=== PATIENT | male | born 1980 | race African-American/Black ===

== ENCOUNTER 2019-04-04 14:53 | Inpatient (IN) | payer OTHER ==
[2019-04-04 18:37] VITALS: BMI 21.7
--- NOTE | 2019-04-04 20:31 | HP ---
CIWA Score - Admission Criteria OASAS Guidelines: Admission for Medically Managed Detox: Requires at least one of the followin. CIWA greater than 12 2. Seizures within the past 24 hours 3. Delirium tremens within the past 24 hours 4. Hallucinations within the past 24 hours 5. Acute intervention needed for co occurring medical disorder 6. Acute intervention needed for co occurring psychiatric disorder 7. Severe withdrawal that cannot be handled at a lower level of care (continued vomiting, continued diarrhea, abnormal vital signs) requiring intravenous medication and/or fluids 8. Admission ROS [facility] Chief Complaint: HERE FOR REHAB FOR CRACK/COCAINE/ CANNABIS Allergies/Adverse Reactions: Allergies Allergy/AdvReac Type Severity Reaction Status Date / Time No Known Allergies Allergy Verified 04/27/15 12:13 History of Present Illness: 38 Y.O. MALE WITH COCAINE AND CANNABIS DEPENDENCE HERE FOR REHAB SERVICES. CLIENT IS REFERRED FROM [facility]. REPORTS USING CANNABIS AND COCAINE DAILY. LAST USE 2 DAYS AGO. REPORTS LONGEST CLEAN TIME 10 YEARS. DENIES HX/O SZ, SI/HI/ AVH. DOMICILED, UNEMPLOYED-HRA, [place]. Exam Limitations: No Limitations - Ebola screening Have you traveled outside of the country in the last 21 days: No (N) Have you had contact with anyone from an Ebola affected area: No Do you have a fever: No - Review of Systems Constitutional: Chills, Loss of Appetite EENT: reports: No Symptoms Reported Respiratory: reports: No Symptoms reported Cardiac: reports: No Symptoms Reported GI: reports: No Symptoms Reported : reports: No Symptoms Reported Musculoskeletal: reports: No Symptoms Reported Integumentary: reports: Other (2ND DEGREE CARDONA .RESOLVING BLISTTERING TO DIGITS OF R AND LEFT HAND) Neuro: reports: No Symptoms reported Endocrine: reports: No Symptoms Reported Hematology: reports: No Symptoms Reported Psychiatric: reports: Orientated x3, Agitated (IRRITABLE) Other Systems: Reviewed and Negative Patient History - Patient Medical History Hx Anemia: No Hx Asthma: No Hx Chronic Obstructive Pulmonary Disease (COPD): No Hx Cancer: No Hx Cardiac Disorders: No Hx Congestive Heart Failure: No Hx Hypertension: No Hx Hypercholesterolemia: No Hx Pacemaker: No HX Cerebrovascular Accident: No Hx Seizures: No Hx Dementia: No Hx Diabetes: No Hx Gastrointestinal Disorders: No Hx Liver Disease: No Hx Genitourinary Disorders: No Hx Sexually Transmitted Disorders: No Hx Renal Disease (ESRD): No Hx Thyroid Disease: No Hx Human Immunodeficiency Virus (HIV): No Hx Hepatitis C: No Hx Depression: No Hx Suicide Attempt: No Hx Bipolar Disorder: No Hx Schizophrenia: Yes Other Medical History: DENIES - Patient Surgical History Past Surgical History: Yes Hx Neurologic Surgery: No Hx Cataract Extraction: No Hx Cardiac Surgery: No Hx Lung Surgery: No Hx Breast Surgery: No Hx Breast Biopsy: No Hx Abdominal Surgery: No Hx Appendectomy: Yes (IN 2003) Hx Cholecystectomy: No Hx Genitourinary Surgery: No Hx Section: No Hx Orthopedic Surgery: No Other Surgical History: appendecotomy (2003) Anesthesia Reaction: No - PPD History Previous Implant?: Yes Documented Results: Negative w/proof Implanted On Prior [facility] Admission?: Yes Date: 07/09/14 Results: 0 mm PPD to be Administered?: Yes - Smoking Cessation Smoking history: Current every day smoker Have you smoked in the past 12 months: Yes Aproximately how many cigarettes per day: 10 Cigars Per Day: 0 Hx Chewing Tobacco Use: No Initiated information on smoking cessation: Yes 'Breaking Loose' booklet given: 04/04/19 - Substance & Tx. History Hx Alcohol Use: No Hx Substance Use: Yes Substance Use Type: Cocaine, Marijuana Hx Substance Use Treatment: Yes ([facility]) - Substances abused Crack Substance route: Smoking Frequency: Daily Amount used: 10 bags-$100/day Age of first use: 16 Date of last use: 04/02/19 Marijuana/Hashish Substance route: Smoking Frequency: 1-2 times per week (2X) Amount used: 2 JOINTS Age of first use: 14 Date of last use: 03/05/19 Family Disease History - Family Disease History Family History: Denies Admission Physical Exam S - Vital Signs Vital Signs: Vital Signs - 24 hr 04/04/19 18:34 Temperature 97.1 F L Pulse Rate 89 Respiratory 18 Rate Blood Pressure 134/72 - Physical General Appearance: Yes: Anxious, Other (MALODUROUS) HEENTM: Yes: EOMI, Normocephalic, MARISOL, Pharynx Normal, Other (POOR ORAL HYGIENE ) Respiratory: Yes: Chest Non-Tender, Lungs Clear, Normal Breath Sounds, No Respiratory Distress, No Accessory Muscle Use Neck: Yes: No masses,lesions,Nodules, Supple, Trachea in good position Breast: Yes: Breast Exam Deferred Cardiology: Yes: Regular Rhythm, Regular Rate, S1, S2 Abdominal: Yes: Normal Bowel Sounds, Non Tender, Soft Genitourinary: Yes: Within Normal Limits Back: Yes: Normal Inspection Musculoskeletal: Yes: full range of Motion, Gait Steady Extremities: Yes: Other (2ND DEGREE CARDONA WITH SOME BLISTERING AND NECROTIC TISSUE NOTED TO FINGERS ON BOTH HANDS. CLIENT REPORTS FROM CHRONIC USE OF CRACK PIPE. TENDER TO TOUCH, SCAR TISSUE AND CALCIFICATION OF SOME AREAS NOTED. NO S/ SX OF ACUTE INFECTION PROCESS NOTED.) Neurological: Yes: Alert, Motor Strength 5/5 Integumentary: Yes: Warm, Other (2ND DEGREE CARDONA WITH SOME BLISTERING AND NECROTIC TISSUE NOTED TO FINGERS ON BOTH HANDS. CLIENT REPORTS FROM CHRONIC USE OF CRACK PIPE. TENDER TO TOUCH, SCAR TISSUE AND CALCIFICATION OF SOME AREAS NOTED. NO S/SX OF ACUTE INFECTION PROCESS NOTED.) Lymphatic: Yes: Within Normal Limits - Diagnostic (1) Cocaine abuse, uncomplicated Current Visit: Yes Status: Acute (2) Cannabis abuse, uncomplicated Current Visit: Yes Status: Acute (3) 2nd degree burn of finger with thumb Current Visit: Yes Status: Acute Qualifiers: Encounter type: initial encounter (4) Drug-induced mood disorder Current Visit: Yes Status: Suspected Comment: Observation (5) Nicotine dependence Current Visit: Yes Status: Chronic Qualifiers: Nicotine product type: cigarettes Substance use status: uncomplicated Qualified Code(s): F17.210 - Nicotine dependence, cigarettes, uncomplicated Cleared for Admission [facility] - Detox or Rehab Detox Regimen/Protocol: Not Applicable Claeared for Rehab Admission: Yes Breathalyzer - Breathalyzer Breathalyzer: 0 Urine Drug Screen - Test Device Lot number: [id number] Expiration date: 12/27/20 - Control Is test valid?: Yes - Results Drug screen NEGATIVE: No Urine drug screen results: THC-Marijuana, LORETA-Cocaine Inpatient Rehab Admission - Rehab Decision to Admit Inpatient rehab admission?: Yes - Initial Determination Are CD services needed?: Yes Free of communicable disease: Yes Not in need of hospitalization: Yes - Rehab Admission Criteria Previous failed treatment: Yes Poor recovery environment: Yes Comorbidities: Yes Lacks judgement: No Patient is meeting Inpatient Rehab admission criteria:: Yes
[2019-04-04] MEDS ORDERED: P-EPHED 60MG/TRIPROLIDI 2.5MG TABLET PO PRN (20:35)
[2019-04-04] MEDS ORDERED: ACETAMINOPHEN 325 MG TABLET (FP) PO PRN (20:35)
[2019-04-04] MEDS ORDERED: NICOTINE POLACRILEX 2 MG GUM BUC PRN (20:35)
[2019-04-04] MEDS ORDERED: guaiFENesin 200 MG/10 ML 10 ML UNIT-DOSE CUPS PO PRN (20:35)
[2019-04-04] MEDS ORDERED: LOPERAMIDE HCL 2 MG CAPSULE PO PRN (20:35)
[2019-04-04] MEDS ORDERED: MAGNESIUM CITRATE 300 ML BOTTLE PO PRN (20:35)
[2019-04-04] MEDS ORDERED: MAGNESIUM HYDROX 2400MG/30ML ORAL SUSPENSION 30 ML CUP PO PRN (20:35)
[2019-04-04] MEDS ORDERED: MAG HYDROX/AL HYDROX/SIMETH 30 ML UNIT-DOSE CUP PO PRN (20:35)
[2019-04-04] MEDS ORDERED: hydrOXYzine PAMOATE 50 MG CAPSULE (FP) PO PRN (20:35)
[2019-04-04] MEDS ORDERED: IBUPROFEN 400 MG TABLET (FP) PO PRN (20:35)
[2019-04-04] MEDS ORDERED: MENTHOL/PHENOL 1 EACH UD MM PRN (20:35)
[2019-04-04] MEDS: CEPHALEXIN MONOHYDRATE 500 MG CAPSULE (UD) PO SCH (23:36)
[2019-04-04] MEDS: THIAMINE HCL 100 MG TABLET (FP) PO SCH (23:39)
[2019-04-04] MEDS: SILVER SULFADIAZINE 1% TOP CREAM 50 GM JAR TP SCH (23:39)
[2019-04-05 09:59] LABS: HEMATOCRIT 44.8 % (35.4-49); HEMOGLOBIN 14.6 GM/dL (11.7-16.9); MCHC 32.6 g/dl (32.0-35.9); MEAN PLT VOLUME 9.5 fl (7.5-11.1); PLATELET COUNT 222 K/MM3 (134-434); RBC 5.21 M/mm3 (4.00-5.60); RDW 14.8 % (11.9-15.9); WHITE BLOOD COUNT 4.4 K/mm3 (4.0-10.0)
[2019-04-05 10:29] LABS: ALBUMIN 3.5 g/dl (3.4-5.0); BILIRUBIN,TOTAL 1.1 mg/dL (0.2-1); CALCIUM 9.5 mg/dL (8.5-10.1); CREATININE 1.2 mg/dL (0.55-1.3); TOT PROT 7.5 g/dl (6.4-8.2)
[2019-04-05 10:36] LABS: POTASSIUM 2.8 mmol/L (3.5-5.1)
[2019-04-05] MEDS: CEPHALEXIN MONOHYDRATE 500 MG CAPSULE (UD) PO SCH ×2 (10:53→22:18)
[2019-04-05] MEDS: PRENATAL VITAMINS W/ FOLIC ACID TABLET (FP) PO SCH (10:53)
[2019-04-05] MEDS: NICOTINE 14 MG/24 HOURS TOPICAL PATCH TD SCH (10:54)
[2019-04-05] MEDS ORDERED: POTASSIUM CHLORIDE TABS 20 MEQ TABLET.ER (FP) PO ONE (11:00)
[2019-04-05] MEDS: SILVER SULFADIAZINE 1% TOP CREAM 50 GM JAR TP SCH (11:57)
--- NOTE | 2019-04-05 13:48 | CONSULT ---
[facility] Psychiatric Consult - Data Date of interview: 04/05/19 Admission source: [facility] Identifying data: Approached for psychiatric interview.Patient declines.
[2019-04-05] MEDS: POTASSIUM CHLORIDE TABS 20 MEQ TABLET.ER (FP) PO SCH (22:18)
[2019-04-05] MEDS: THIAMINE HCL 100 MG TABLET (FP) PO SCH (22:18)
[2019-04-06 09:15] LABS: RPR REACTIVE 1:1 (NONREACTIVE)
[2019-04-06 09:16] LABS: TREPONEMA ANTIBODY PREVIOUSLY REACTIVE (NONREACTIVE)
[2019-04-06] MEDS: CEPHALEXIN MONOHYDRATE 500 MG CAPSULE (UD) PO SCH ×2 (10:05→21:17)
[2019-04-06] MEDS: PRENATAL VITAMINS W/ FOLIC ACID TABLET (FP) PO SCH (10:05)
[2019-04-06] MEDS: POTASSIUM CHLORIDE TABS 20 MEQ TABLET.ER (FP) PO SCH ×2 (10:05→21:17)
[2019-04-06] MEDS: NICOTINE 14 MG/24 HOURS TOPICAL PATCH TD SCH (10:06)
[2019-04-06] MEDS: SILVER SULFADIAZINE 1% TOP CREAM 50 GM JAR TP SCH (10:06)
--- NOTE | 2019-04-06 10:29 | PN ---
S Progress Note Note: Laboratory Last Values WBC 4.4 K/mm3 (4.0-10.0) 04/05/19 08:10 RBC 5.21 M/mm3 (4.00-5.60) 04/05/19 08:10 Hgb 14.6 GM/dL (11.7-16.9) 04/05/19 08:10 Hct 44.8 % (35.4-49) 04/05/19 08:10 MCV 86.0 fl (80-96) 04/05/19 08:10 MCH 28.0 pg (25.7-33.7) 04/05/19 08:10 MCHC 32.6 g/dl (32.0-35.9) 04/05/19 08:10 RDW 14.8 % (11.9-15.9) 04/05/19 08:10 Plt Count 222 K/MM3 (134-434) 04/05/19 08:10 MPV 9.5 fl (7.5-11.1) 04/05/19 08:10 Sodium 138 mmol/L (136-145) 04/05/19 08:10 Potassium 2.8 mmol/L (3.5-5.1) L* 04/05/19 08:10 Chloride 96 mmol/L (98-107) L 04/05/19 08:10 Carbon Dioxide 35 mmol/L (21-32) H 04/05/19 08:10 Anion Gap 6 MMOL/L (8-16) L 04/05/19 08:10 BUN 15 mg/dL (7-18) 04/05/19 08:10 Creatinine 1.2 mg/dL (0.55-1.3) 04/05/19 08:10 Est GFR (CKD-EPI)AfAm 88.37 04/05/19 08:10 Est GFR (CKD-EPI)NonAf 76.25 04/05/19 08:10 Random Glucose 171 mg/dL (74-106) H 04/05/19 08:10 Calcium 9.5 mg/dL (8.5-10.1) 04/05/19 08:10 Total Bilirubin 1.1 mg/dL (0.2-1) H 04/05/19 08:10 AST 69 U/L (15-37) H 05/10/19 08:10 ALT 83 U/L (13-61) H 04/05/19 08:10 Alkaline Phosphatase 47 U/L (45-117) 04/05/19 08:10 Total Protein 7.5 g/dl (6.4-8.2) 04/05/19 08:10 Albumin 3.5 g/dl (3.4-5.0) 04/05/19 08:10 RPR Titer Reactive 1:1 (NONREACTIVE) H 04/05/19 08:10 T.pallidum Ab (MHA) Previously reactive (NONREACTIVE) 04/05/19 08:10 patient has history of syphilis treated in the past
[2019-04-06] MEDS: THIAMINE HCL 100 MG TABLET (FP) PO SCH (21:17)
--- NOTE | 2019-04-07 00:26 | PN ---
[facility] Progress Note Note: Patient PPD is 15 mm induration. Denies cough, SOB, night sweats. Plan: Chest x-ray. Consider referral for medication management, as needed.
[2019-04-07] MEDS: CEPHALEXIN MONOHYDRATE 500 MG CAPSULE (UD) PO SCH ×2 (10:12→21:43)
[2019-04-07] MEDS: POTASSIUM CHLORIDE TABS 20 MEQ TABLET.ER (FP) PO SCH ×2 (10:12→21:43)
[2019-04-07] MEDS: PRENATAL VITAMINS W/ FOLIC ACID TABLET (FP) PO SCH (10:12)
[2019-04-07] MEDS: NICOTINE 14 MG/24 HOURS TOPICAL PATCH TD SCH (10:12)
[2019-04-07] MEDS: SILVER SULFADIAZINE 1% TOP CREAM 50 GM JAR TP SCH (10:12)
--- NOTE | 2019-04-07 13:23 | PN ---
[facility] Progress Note Note: chest xray to be done on 04/08/19 at 1400 for positive ppd
[2019-04-07] MEDS: THIAMINE HCL 100 MG TABLET (FP) PO SCH (21:43)
[2019-04-08] MEDS: PRENATAL VITAMINS W/ FOLIC ACID TABLET (FP) PO SCH (10:17)
[2019-04-08] MEDS: POTASSIUM CHLORIDE TABS 20 MEQ TABLET.ER (FP) PO SCH ×2 (10:17→21:28)
[2019-04-08] MEDS: SILVER SULFADIAZINE 1% TOP CREAM 50 GM JAR TP SCH (10:17)
[2019-04-08] MEDS: CEPHALEXIN MONOHYDRATE 500 MG CAPSULE (UD) PO SCH ×2 (10:17→21:28)
[2019-04-08] MEDS: NICOTINE 14 MG/24 HOURS TOPICAL PATCH TD SCH (10:18)
--- NOTE | 2019-04-08 11:13 | PN ---
[facility] Progress Note Note: Laboratory Tests 04/05/19 04/05/19 04/05/19 08:10 08:10 08:10 WBC 4.4 RBC 5.21 Hgb 14.6 Hct 44.8 MCV 86.0 MCH 28.0 MCHC 32.6 RDW 14.8 Plt Count 222 MPV 9.5 Sodium 138 Potassium 2.8 L* Chloride 96 L Carbon Dioxide 35 H Anion Gap 6 L BUN 15 Creatinine 1.2 Est GFR (CKD-EPI)AfAm 88.37 Est GFR (CKD-EPI)NonAf 76.25 Random Glucose 171 H Calcium 9.5 Total Bilirubin 1.1 H AST 69 H ALT 83 H Alkaline Phosphatase 47 Total Protein 7.5 Albumin 3.5 RPR Titer Reactive 1:1 H T.pallidum Ab (MHA) Previously reactive TO REPEAT CMP ON 04/09/19
[2019-04-08] MEDS: THIAMINE HCL 100 MG TABLET (FP) PO SCH (21:28)
[2019-04-09] MEDS: PRENATAL VITAMINS W/ FOLIC ACID TABLET (FP) PO SCH (10:08)
[2019-04-09] MEDS: POTASSIUM CHLORIDE TABS 20 MEQ TABLET.ER (FP) PO SCH ×2 (10:08→21:19)
[2019-04-09] MEDS: CEPHALEXIN MONOHYDRATE 500 MG CAPSULE (UD) PO SCH ×2 (10:08→21:19)
[2019-04-09] MEDS: SILVER SULFADIAZINE 1% TOP CREAM 50 GM JAR TP SCH (10:09)
[2019-04-09] MEDS: NICOTINE 14 MG/24 HOURS TOPICAL PATCH TD SCH (10:09)
[2019-04-09 12:35] LABS: ALBUMIN 2.8 g/dl (3.4-5.0); BILIRUBIN,TOTAL 0.2 mg/dL (0.2-1); CALCIUM 8.6 mg/dL (8.5-10.1); CREATININE 1.1 mg/dL (0.55-1.3); POTASSIUM 3.9 mmol/L (3.5-5.1); TOT PROT 6.1 g/dl (6.4-8.2)
[2019-04-09] MEDS: THIAMINE HCL 100 MG TABLET (FP) PO SCH (21:19)
[2019-04-10] MEDS: PRENATAL VITAMINS W/ FOLIC ACID TABLET (FP) PO SCH (10:15)
[2019-04-10] MEDS: CEPHALEXIN MONOHYDRATE 500 MG CAPSULE (UD) PO SCH ×2 (10:15→21:25)
[2019-04-10] MEDS: POTASSIUM CHLORIDE TABS 20 MEQ TABLET.ER (FP) PO SCH ×2 (10:15→21:25)
[2019-04-10] MEDS: SILVER SULFADIAZINE 1% TOP CREAM 50 GM JAR TP SCH (10:16)
[2019-04-10] MEDS: NICOTINE 14 MG/24 HOURS TOPICAL PATCH TD SCH (10:16)
--- NOTE | 2019-04-10 13:26 | PN ---
[facility] Progress Note Note: PT WAS SEEN BY THE CROWNING INSPECTOR TODAY RE:ELEVATED BLOOD SUGAR. DENIES PREVIOUS HX OF DM BUT REPORTS FAMILY HX. Laboratory Tests 04/05/19 04/05/19 04/05/19 08:10 08:10 08:10 WBC 4.4 RBC 5.21 Hgb 14.6 Hct 44.8 MCV 86.0 MCH 28.0 MCHC 32.6 RDW 14.8 Plt Count 222 MPV 9.5 Sodium 138 Potassium 2.8 L* Chloride 96 L Carbon Dioxide 35 H Anion Gap 6 L BUN 15 Creatinine 1.2 Est GFR (CKD-EPI)AfAm 88.37 Est GFR (CKD-EPI)NonAf 76.25 Random Glucose 171 H Calcium 9.5 Total Bilirubin 1.1 H AST 69 H ALT 83 H Alkaline Phosphatase 47 Total Protein 7.5 Albumin 3.5 RPR Titer Reactive 1:1 H T.pallidum Ab (MHA) Previously reactive 04/09/19 07:30 WBC RBC Hgb Hct MCV MCH MCHC RDW Plt Count MPV Sodium 141 Potassium 3.9 Chloride 105 Carbon Dioxide 31 Anion Gap 4 L BUN 13 Creatinine 1.1 Est GFR (CKD-EPI)AfAm 98.18 Est GFR (CKD-EPI)NonAf 84.71 Random Glucose 152 H Calcium 8.6 Total Bilirubin 0.2 AST 74 H ALT 114 H Alkaline Phosphatase 42 L Total Protein 6.1 L Albumin 2.8 L RPR Titer T.pallidum Ab (MHA) REPEAT CMP/GLC NOT MUCH IMPROVED. PLAN:D/W PT AND CROWNING INSPECTOR BGM X 2 DAYS NCS DIET PT AGREED TO POC
[2019-04-10] MEDS: THIAMINE HCL 100 MG TABLET (FP) PO SCH (21:25)
[2019-04-11] MEDS: POTASSIUM CHLORIDE TABS 20 MEQ TABLET.ER (FP) PO SCH (10:40)
[2019-04-11] MEDS: PRENATAL VITAMINS W/ FOLIC ACID TABLET (FP) PO SCH (10:40)
[2019-04-11] MEDS: CEPHALEXIN MONOHYDRATE 500 MG CAPSULE (UD) PO SCH (10:40)
[2019-04-11] MEDS: SILVER SULFADIAZINE 1% TOP CREAM 50 GM JAR TP SCH (10:41)
[2019-04-11] MEDS: NICOTINE 14 MG/24 HOURS TOPICAL PATCH TD SCH (10:42)
[2019-04-11] MEDS: THIAMINE HCL 100 MG TABLET (FP) PO SCH (21:40)
[2019-04-12] MEDS: POTASSIUM CHLORIDE TABS 20 MEQ TABLET.ER (FP) PO SCH (10:14)
[2019-04-12] MEDS: NICOTINE 14 MG/24 HOURS TOPICAL PATCH TD SCH (10:14)
[2019-04-12] MEDS: PRENATAL VITAMINS W/ FOLIC ACID TABLET (FP) PO SCH (10:14)
[2019-04-12] MEDS: SILVER SULFADIAZINE 1% TOP CREAM 50 GM JAR TP SCH (10:14)
[2019-04-12] MEDS: THIAMINE HCL 100 MG TABLET (FP) PO SCH (21:28)
[2019-04-13] MEDS: PRENATAL VITAMINS W/ FOLIC ACID TABLET (FP) PO SCH (10:00)
[2019-04-13] MEDS: POTASSIUM CHLORIDE TABS 20 MEQ TABLET.ER (FP) PO SCH (10:00)
[2019-04-13] MEDS: SILVER SULFADIAZINE 1% TOP CREAM 50 GM JAR TP SCH (10:00)
[2019-04-13] MEDS: NICOTINE 14 MG/24 HOURS TOPICAL PATCH TD SCH (10:01)
[2019-04-13] MEDS: THIAMINE HCL 100 MG TABLET (FP) PO SCH (21:22)
[2019-04-14] MEDS: POTASSIUM CHLORIDE TABS 20 MEQ TABLET.ER (FP) PO SCH (10:07)
[2019-04-14] MEDS: PRENATAL VITAMINS W/ FOLIC ACID TABLET (FP) PO SCH (10:07)
[2019-04-14] MEDS: SILVER SULFADIAZINE 1% TOP CREAM 50 GM JAR TP SCH (10:08)
[2019-04-14] MEDS: NICOTINE 14 MG/24 HOURS TOPICAL PATCH TD SCH (10:08)
[2019-04-14] MEDS: MELATONIN 5 MG TABLETS PO PRN (21:16)
[2019-04-14] MEDS: THIAMINE HCL 100 MG TABLET (FP) PO SCH (21:16)
[2019-04-15] MEDS: SILVER SULFADIAZINE 1% TOP CREAM 50 GM JAR TP SCH (10:28)
[2019-04-15] MEDS: NICOTINE 14 MG/24 HOURS TOPICAL PATCH TD SCH (10:28)
[2019-04-15] MEDS: PRENATAL VITAMINS W/ FOLIC ACID TABLET (FP) PO SCH (10:28)
[2019-04-15] MEDS: THIAMINE HCL 100 MG TABLET (FP) PO SCH (21:21)
[2019-04-15] MEDS: MELATONIN 5 MG TABLETS PO PRN (21:23)
[2019-04-16] MEDS: SILVER SULFADIAZINE 1% TOP CREAM 50 GM JAR TP SCH (09:35)
[2019-04-16] MEDS: NICOTINE 14 MG/24 HOURS TOPICAL PATCH TD SCH (09:35)
[2019-04-16] MEDS: PRENATAL VITAMINS W/ FOLIC ACID TABLET (FP) PO SCH (09:35)
--- NOTE | 2019-04-16 09:57 | PN ---
[facility] Progress Note Note: PT REPORTS TO NURSING THAT HE WANTS TO GET BACK ON HIS PSYCHOTROPIC MEDICATIONS( SEE HOME MEDS). AN ATTEMPT WAS MADE TO SEE PT BY PSYCH CONSULT ON ADMISSION BUT PT DECLINED AT THE TIME. TODAY, PT STATES HE WILL LIKE TO BE SEEN TO START HIS MEDICATIONS. Vital Signs 04/16/19 04/16/19 03:30 06:50 Temperature 98.0 F Pulse Rate 58 L Respiratory 18 16 Rate Blood Pressure 117/71 Laboratory Tests 04/05/19 04/05/19 04/05/19 08:10 08:10 08:10 WBC 4.4 RBC 5.21 Hgb 14.6 Hct 44.8 MCV 86.0 MCH 28.0 MCHC 32.6 RDW 14.8 Plt Count 222 MPV 9.5 Sodium 138 Potassium 2.8 L* Chloride 96 L Carbon Dioxide 35 H Anion Gap 6 L BUN 15 Creatinine 1.2 Est GFR (CKD-EPI)AfAm 88.37 Est GFR (CKD-EPI)NonAf 76.25 POC Glucometer Random Glucose 171 H Calcium 9.5 Total Bilirubin 1.1 H AST 69 H ALT 83 H Alkaline Phosphatase 47 Total Protein 7.5 Albumin 3.5 RPR Titer Reactive 1:1 H T.pallidum Ab (MHA) Previously reactive 04/09/19 04/14/19 07:30 07:00 WBC RBC Hgb Hct MCV MCH MCHC RDW Plt Count MPV Sodium 141 Potassium 3.9 Chloride 105 Carbon Dioxide 31 Anion Gap 4 L BUN 13 Creatinine 1.1 Est GFR (CKD-EPI)AfAm 98.18 Est GFR (CKD-EPI)NonAf 84.71 POC Glucometer 82 Random Glucose 152 H Calcium 8.6 Total Bilirubin 0.2 AST 74 H ALT 114 H Alkaline Phosphatase 42 L Total Protein 6.1 L Albumin 2.8 L RPR Titer T.pallidum Ab (MHA) PLAN:TO BE SEEN BY PSYCH CONSULT.
[2019-04-16] MEDS: THIAMINE HCL 100 MG TABLET (FP) PO SCH (21:21)
[2019-04-17] MEDS: NICOTINE 14 MG/24 HOURS TOPICAL PATCH TD SCH (10:12)
[2019-04-17] MEDS: PRENATAL VITAMINS W/ FOLIC ACID TABLET (FP) PO SCH (10:12)
[2019-04-17] MEDS: SILVER SULFADIAZINE 1% TOP CREAM 50 GM JAR TP SCH (10:13)
--- NOTE | 2019-04-17 10:21 | PN ---
[facility] Progress Note Note: PT IS SCHEDULED TO BE DISCHARGED ON 04/18/19. REHAB WAS TOLERATED WELL. PT HAS MET WITH HIS COUNSELOR, NAPOLEON AZUL AND HAS BEEN REFERRED TO CD AFTERCARE AT [facility] ON [address]. PT REPORTS HE HAS A PSYCHIATRIST AT [facility] WHO MANAGES HIS MENTAL CARE AND WILL SEE HIM AFTER DISCHARGE ON 04/19/19. PT HAD ALL 10 DIGITS WITH CRACK PIPE CARDONA ON ADMISSION AND UNDERWENT WOUND TREATMENT WHILE HERE IN DRUG TREATMENT. PT IS ALERT O X 3. OOB AMBULATING WITH STEADY GAIT. CALM AND MAKES NEEDS KNOWN TO STAFF. DENIES S/H/I. Home Medications Medication Instructions Recorded Aripiprazole [Abilify] 10 mg PO HS 04/04/19 Olanzapine [Zyprexa -] 10 mg PO HS 04/04/19 Vital Signs 04/17/19 04/17/19 03:30 06:44 Temperature 97.8 F Pulse Rate 56 L Respiratory 18 16 Rate Blood Pressure 128/80 Laboratory Tests 04/05/19 04/05/19 04/05/19 08:10 08:10 08:10 WBC 4.4 RBC 5.21 Hgb 14.6 Hct 44.8 MCV 86.0 MCH 28.0 MCHC 32.6 RDW 14.8 Plt Count 222 MPV 9.5 Sodium 138 Potassium 2.8 L* Chloride 96 L Carbon Dioxide 35 H Anion Gap 6 L BUN 15 Creatinine 1.2 Est GFR (CKD-EPI)AfAm 88.37 Est GFR (CKD-EPI)NonAf 76.25 POC Glucometer Random Glucose 171 H Calcium 9.5 Total Bilirubin 1.1 H AST 69 H ALT 83 H Alkaline Phosphatase 47 Total Protein 7.5 Albumin 3.5 RPR Titer Reactive 1:1 H T.pallidum Ab (MHA) Previously reactive 04/09/19 04/14/19 07:30 07:00 WBC RBC Hgb Hct MCV MCH MCHC RDW Plt Count MPV Sodium 141 Potassium 3.9 Chloride 105 Carbon Dioxide 31 Anion Gap 4 L BUN 13 Creatinine 1.1 Est GFR (CKD-EPI)AfAm 98.18 Est GFR (CKD-EPI)NonAf 84.71 POC Glucometer 82 Random Glucose 152 H Calcium 8.6 Total Bilirubin 0.2 AST 74 H ALT 114 H Alkaline Phosphatase 42 L Total Protein 6.1 L Albumin 2.8 L RPR Titer T.pallidum Ab (MHA) BGM:82MG/DL SKIN:ALL 10 DIGITS WITH VARIOUS STAGES OF HEALING. SCABS AND DRY SKIN NOTED. NO OPEN SKIN. REDNESS AND SWELLING RESOLVED. A:S/P 2ND DEGREE CRACK PIPE BURN, BILATERAL FINGERS. NAD MEDICALLY STABLE FOR D/C ON 04/18/19. PLAN;FOLLOW UP FOR CD AFTERCARE AT [facility] RECOMMENDED ON 04/18/19 AT 11:00 A.M. FOLLOW UP WITH MEDICAL MANAGEMENT 1-2 WEEKS AFTER DISCHARGE.
--- NOTE | 2019-04-17 12:42 | CONSULT ---
[facility] Psychiatric Consult - Data Date of interview: 04/17/19 Admission source: [facility] Identifying data: Readmission to [facility] for this 38 y/o AA male self- referred for rehabilitation treatment (cannabis + cocaine). Direct admission to [address]. Patient is single, no children, domiciled (lives in a residential program at [facility] in [facility]), unemployed and supported on welfare. Substance Abuse History: Discussed in this session. Patient confirms an enduring history of crack + marihuana abuse. Details in this segment of [facility] report : Smoking history: Current every day smoker. Have you smoked in the past 12 months: Yes. Aproximately how many cigarettes per day: 10. Cigars Per Day: 0. Hx Chewing Tobacco Use: No. Initiated information on smoking cessation : Yes. 'Breaking Loose' booklet given: 04/04/19. - Substance & Tx. History. Hx Alcohol Use: No. Hx Substance Use: Yes. Substance Use Type: Cocaine, Marijuana. Hx Substance Use Treatment: Yes ([facility]). - Substances abused. Crack. Substance route: Smoking. Frequency: Daily. Amount used: 10 bags-$100/day. Age of first use: 16. Date of last use: 04/02/19. Marijuana/Hashish. Substance route: Smoking. Frequency: 1-2 times per week (2X ). Amount used: 2 JOINTS. Age of first use: 14. Date of last use: 03/05/19 Medical History: Patient endorses good general health. Noted history of past treatment for syphilis, appendectomy and positive PPD. No reported allergies. Psychiatric History: Patient endorses a history of multiple psychiatric hospitalizations ([facility], [facility], [facility]). Diagnosed with Schizophrenia. Mr Brooks sees a psychiatrist for medication management at the [facility] ( [facility]) in [facility]. Patient is maintained on a regimen of aripriprazole 10 mg/day. He indicates that he has NOT taken his medication for a period of three weeks prior to his admission to [facility] program. Patient denies history of suicide attempts. Physical/Sexual Abuse/Trauma History: Patient denies history of abuse in this interview. Additional Comment: Urine drug screen results: THC-Marijuana, LORETA-Cocaine. Noted. Mental Status Exam - Mental Status Exam Alert and Oriented to: Time, Place, Person Cognitive Function: Good Patient Appearance: Well Groomed Mood: Euthymic (stable mood) Affect: Appropriate, Normal Range Patient Behavior: Appropriate, Cooperative (friendly, good and coherent historian) Speech Pattern: Clear, Appropriate Voice Loudness: Normal Thought Process: Intact, Goal Oriented Thought Disorder: Not Present Hallucinations: Denies Suicidal Ideation: Denies Homicidal Ideation: Denies Insight/Judgement: Fair (patient has requested to get back on aripriprazole) Sleep: Well Appetite: Good Muscle strength/Tone: Normal Gait/Station: Normal Psychiatric Findings - Problem List ([place] 1, 2,3) (1) Schizophrenia Current Visit: Yes Status: Chronic (2) Cannabis abuse, uncomplicated Current Visit: Yes Status: Chronic (3) Cocaine dependence Current Visit: Yes Status: Chronic (4) Nicotine dependence Current Visit: Yes Status: Chronic Qualifiers: Nicotine product type: cigarettes Substance use status: uncomplicated Qualified Code(s): F17.210 - Nicotine dependence, cigarettes, uncomplicated - Initial Treatment Plan Initial Treatment Plan: Psychoeducation. Sleep hygiene. Motivational counseling for maintenance of sobriety + adherence to psychiatric aftercare (medications / attendance to Day program). Contact has been established this morning with [facility] case resource manager, Poncho Donahue, at [phone] : longitudinal history taken, medication + affiliation with [facility] confirmed. Mr Brooks has authorized MD to discuss his care with Mr Donahue (conversation was conducted in the presence of the patient). Abilify 5 mg po daily. Ordered.Side effects/benefits of the drug are discussed with patient. Informed consent given verbally to MD. Mental status is stable. Patient is at baseline. Uneventful rehabilitation course. Mr Brooks wishes to return to [facility] for his aftercare (fax : [phone]).
[2019-04-17] MEDS: ARIPiprazole 5 MG TABLET (FP) PO SCH (13:12)
[2019-04-17] MEDS: THIAMINE HCL 100 MG TABLET (FP) PO SCH (21:24)
[2019-04-18 06:57] VITALS: BP 128/82; PULSE 58; TEMP 97.9
[2019-04-18] MEDS: PRENATAL VITAMINS W/ FOLIC ACID TABLET (FP) PO SCH (10:01)
[2019-04-18] MEDS: NICOTINE 14 MG/24 HOURS TOPICAL PATCH TD SCH (10:02)
[2019-04-18] MEDS: SILVER SULFADIAZINE 1% TOP CREAM 50 GM JAR TP SCH (10:02)
[2019-04-18] MEDS: ARIPiprazole 5 MG TABLET (FP) PO SCH (10:02)
--- NOTE | 2019-04-18 10:20 | PN ---
S Progress Note Note: Psychiatry Attending's note : Script for abilify 5 mg po daily # 30 tablets. Sent to [facility].
== END 2019-04-18 10:45 | disposition home or self-care (01) | DRG 772 ==
LOC: YASAS 14:53 → Y5N 20:35
PROVIDERS: ADMIT Neuromusculoskeletal Medicine & OMM; ATTEND Neuromusculoskeletal Medicine & OMM
PROC: HZ42ZZZ Group Counseling for Substance Abuse Treatment, Cognitive-Behavioral (ICD-10-PCS; principal; 2019-04-04)
DX: F14.20 Cocaine dependence, uncomplicated (principal); F12.20 Cannabis dependence, uncomplicated; F17.210 Nicotine dependence, cigarettes, uncomplicated; F20.9 Schizophrenia, unspecified; F19.24 Other psychoactive substance dependence with psychoactive substance-induced mood disorder; E87.6 Hypokalemia; R73.9 Hyperglycemia, unspecified; R76.11 Nonspecific reaction to tuberculin skin test without active tuberculosis; T23.242A Burn of second degree of multiple left fingers (nail), including thumb, initial encounter; T23.241A Burn of second degree of multiple right fingers (nail), including thumb, initial encounter; X19.XXXA Contact with other heat and hot substances, initial encounter; Y93.89 Activity, other specified; Y92.89 Other specified places as the place of occurrence of the external cause; Y99.8 Other external cause status; Z86.19 Personal history of other infectious and parasitic diseases
CPT/HCPCS: 36415; 71045-TC-FY; 80053; 82962; 85027; 86593; 86780

== ENCOUNTER 2022-09-02 17:39 | Inpatient (IN) | payer OTHER ==
[2022-09-02 21:47] VITALS: BMI 25.2
[2022-09-03] MEDS ORDERED: IBUPROFEN 400 MG TABLET (FP) PO PRN (01:12)
[2022-09-03] MEDS ORDERED: guaiFENesin 200 MG/10 ML 10 ML UNIT-DOSE CUPS PO PRN (01:12)
[2022-09-03] MEDS ORDERED: NICOTINE POLACRILEX 2 MG GUM BC PRN (01:12)
[2022-09-03] MEDS ORDERED: MAGNESIUM CITRATE 300 ML BOTTLE PO PRN (01:12)
[2022-09-03] MEDS ORDERED: LOPERAMIDE HCL 2 MG CAPSULE PO PRN (01:12)
[2022-09-03] MEDS ORDERED: MAGNESIUM HYDROX 2400MG/30ML ORAL SUSPENSION 30 ML CUP PO PRN (01:12)
[2022-09-03] MEDS ORDERED: MAG HYDROX/AL HYDROX/SIMETH 30 ML UNIT-DOSE CUP PO PRN (01:12)
[2022-09-03] MEDS ORDERED: ACETAMINOPHEN 325 MG TABLET (FP) PO PRN (01:12)
[2022-09-03] MEDS ORDERED: P-EPHED 60MG/TRIPROLIDI 2.5MG TABLET PO PRN (01:12)
[2022-09-03 04:46] VITALS: BP 142/89; PULSE 66; RESP 20; TEMP 97.3
[2022-09-03] MEDS ORDERED: NICOTINE 14 MG/24 HOURS TOPICAL PATCH TD SCH (10:00)
[2022-09-03] MEDS ORDERED: PRENATAL VITAMINS W/ FOLIC ACID TABLET (FP) PO SCH (10:00)
[2022-09-03 12:07] LABS: HEMOGLOBIN 13.1 GM/dL (11.7-16.9); MCH 28.6 pg (25.7-33.7); MCHC 32.6 g/dl (32.0-35.9); MEAN CELL VOLUME 87.5 fl (80-96); MEAN PLT VOLUME 8.5 fl (7.5-11.1); PLATELET COUNT 286 10^3/uL (134-434); RBC 4.58 M/mm3 (4.00-5.60); RDW 15.9 % (11.9-15.9); WHITE BLOOD COUNT 4.2 K/mm3 (4.0-10.0)
[2022-09-03 12:15] LABS: CALCIUM 8.5 mg/dL (8.5-10.1)
[2022-09-03 12:17] LABS: ALBUMIN 2.7 g/dl (3.4-5.0); BLOOD UREA NITROGEN 16.7 mg/dL (7-18)
[2022-09-03 12:20] LABS: TOT PROT 6.4 g/dl (6.4-8.2)
[2022-09-03 12:22] LABS: BILIRUBIN,TOTAL 0.2 mg/dL (0.2-1)
[2022-09-03 12:42] LABS: SYPHILIS W/ RPR CONF NON-REACTIVE (NONREACTIVE)
[2022-09-03] MEDS ORDERED: THIAMINE HCL 100 MG TABLET (FP) PO SCH (22:00)
[2022-09-03] MEDS ORDERED: MELATONIN 5 MG TABLETS PO SCH (22:00)
== END 2022-09-04 08:03 | disposition left against medical advice (07) | DRG 770 ==
LOC: YASAS 17:39 → Y3E 09-03 04:26
PROVIDERS: ADMIT Surgery; ATTEND Surgery
PROC: HZ2ZZZZ Detoxification Services for Substance Abuse Treatment (ICD-10-PCS; principal; 2022-09-03)
DX: F14.20 Cocaine dependence, uncomplicated (principal); F20.9 Schizophrenia, unspecified; F19.24 Other psychoactive substance dependence with psychoactive substance-induced mood disorder; B18.2 Chronic viral hepatitis C; R76.11 Nonspecific reaction to tuberculin skin test without active tuberculosis; Z28.310 Unvaccinated for COVID-19; Z28.9 Immunization not carried out for unspecified reason; Z56.0 Unemployment, unspecified; Z59.00 Homelessness unspecified
CPT/HCPCS: 36415; 80053; 85027; 86780; 86803; 87522; C9803-CS; U0003; U0005

== ENCOUNTER 2023-04-28 23:13 | Inpatient (IN) | payer OTHER ==
[2023-04-28 23:58] VITALS: BMI 19.6
[2023-04-29] MEDS ORDERED: COLLOIDAL OATMEAL 1 BAR EACH TP PRN (01:04)
[2023-04-29] MEDS ORDERED: IBUPROFEN 400 MG TABLET (FP) PO PRN (01:04)
[2023-04-29] MEDS ORDERED: POLYETHYLENE GLYCOL (HEALTHYLAX) 3350 17 GM PACKET PO PRN (01:04)
[2023-04-29] MEDS ORDERED: BENZOCAINE/MENTHOL (CHLORASEPTIC ) LOZENGE MM PRN (01:04)
[2023-04-29] MEDS ORDERED: guaiFENesin 600 MG TABLET.ER (FP) PO PRN (01:04)
[2023-04-29] MEDS ORDERED: NALOXONE HCL (KLOXXADO) 8 MG SPRAY NS PRN (01:04)
[2023-04-29] MEDS ORDERED: NALOXONE HCL 0.4 MG/ML VIAL IM PRN (01:04)
[2023-04-29] MEDS ORDERED: LOPERAMIDE HCL 2 MG CAPSULE PO PRN (01:04)
[2023-04-29] MEDS ORDERED: MAGNESIUM HYDROX 2400MG/30ML ORAL SUSPENSION 30 ML CUP PO PRN (01:04)
[2023-04-29] MEDS ORDERED: ACETAMINOPHEN 325 MG TABLET (FP) PO PRN (01:04)
[2023-04-29] MEDS ORDERED: NICOTINE 10 MG CARTRIDGE (INHALER) IH PRN (01:04)
[2023-04-29] MEDS ORDERED: AMMONIUM LACTATE 12% LOTION 225 GM BOTTLE TP PRN (01:04)
[2023-04-29] MEDS ORDERED: BENZONATATE 200 MG CAPSULE PO PRN (01:04)
[2023-04-29] MEDS ORDERED: IBUPROFEN 600 MG TABLET (FP) PO PRN (01:04)
[2023-04-29] MEDS ORDERED: MAG HYDROX/AL HYDROX/SIMETH 30 ML UNIT-DOSE CUP PO PRN (01:04)
[2023-04-29 06:32] VITALS: RESP 18
[2023-04-29 07:00] VITALS: TEMP 98.6
[2023-04-29 09:05] VITALS: BP 132/67; PULSE 71
[2023-04-29] MEDS ORDERED: PRENATAL VITAMINS W/ FOLIC ACID TABLET (FP) PO SCH (10:00)
[2023-04-29] MEDS ORDERED: NICOTINE 14 MG/24 HOURS TOPICAL PATCH TD SCH (10:00)
[2023-04-29] MEDS ORDERED: THIAMINE HCL 100 MG TABLET (FP) PO SCH (22:00)
[2023-04-29] MEDS ORDERED: MELATONIN 5 MG TABLETS PO SCH (22:00)
== END 2023-04-29 20:45 | disposition left against medical advice (07) | DRG 770 ==
LOC: YASAS 23:13 → Y3W 04-29 02:05
PROVIDERS: ADMIT Allergy & Immunology; ATTEND Surgery
PROC: HZ42ZZZ Group Counseling for Substance Abuse Treatment, Cognitive-Behavioral (ICD-10-PCS; principal; 2023-04-29)
DX: F14.20 Cocaine dependence, uncomplicated (principal); F12.10 Cannabis abuse, uncomplicated; F17.210 Nicotine dependence, cigarettes, uncomplicated; F20.9 Schizophrenia, unspecified; B18.2 Chronic viral hepatitis C; Z28.311 Partially vaccinated for COVID-19
CPT/HCPCS: 87635

== ENCOUNTER 2023-05-30 01:11 | Inpatient (IN) | payer OTHER ==
[2023-05-30 01:49] VITALS: BMI 17.8
[2023-05-30] MEDS ORDERED: BENZOCAINE/MENTHOL (CHLORASEPTIC ) LOZENGE MM PRN (02:08)
[2023-05-30] MEDS ORDERED: COLLOIDAL OATMEAL 1 BAR EACH TP PRN (02:08)
[2023-05-30] MEDS ORDERED: hydrOXYzine PAMOATE 25 MG CAPSULE (FP) PO PRN (02:08)
[2023-05-30] MEDS ORDERED: IBUPROFEN 600 MG TABLET (FP) PO PRN (02:08)
[2023-05-30] MEDS ORDERED: POLYETHYLENE GLYCOL (HEALTHYLAX) 3350 17 GM PACKET PO PRN (02:08)
[2023-05-30] MEDS ORDERED: LOPERAMIDE HCL 2 MG CAPSULE PO PRN (02:08)
[2023-05-30] MEDS ORDERED: MAGNESIUM HYDROX 2400MG/30ML ORAL SUSPENSION 30 ML CUP PO PRN (02:08)
[2023-05-30] MEDS ORDERED: MAG HYDROX/AL HYDROX/SIMETH 30 ML UNIT-DOSE CUP PO PRN (02:08)
[2023-05-30] MEDS ORDERED: AMMONIUM LACTATE 12% LOTION 225 GM BOTTLE TP PRN (02:08)
[2023-05-30] MEDS ORDERED: guaiFENesin 600 MG TABLET.ER (FP) PO PRN (02:08)
[2023-05-30] MEDS ORDERED: ACETAMINOPHEN 325 MG TABLET (FP) PO PRN (02:08)
[2023-05-30] MEDS ORDERED: BENZONATATE 200 MG CAPSULE PO PRN (02:08)
[2023-05-30] MEDS ORDERED: IBUPROFEN 400 MG TABLET (FP) PO PRN (02:08)
[2023-05-30 03:41] VITALS: BP 125/71; PULSE 66; RESP 18; TEMP 97.7
[2023-05-30] MEDS: PRENATAL VITAMINS W/ FOLIC ACID TABLET (FP) PO SCH (11:10)
[2023-05-30] MEDS ORDERED: THIAMINE HCL 100 MG TABLET (FP) PO SCH (22:00)
[2023-05-30] MEDS ORDERED: MELATONIN 5 MG TABLETS PO SCH (22:00)
[2023-05-31] MEDS: PRENATAL VITAMINS W/ FOLIC ACID TABLET (FP) PO SCH (11:01)
== END 2023-05-31 11:50 | disposition left against medical advice (07) | DRG 770 ==
LOC: YASAS 01:11 → Y3W 02:32
PROVIDERS: ADMIT Allergy & Immunology; ATTEND Psychiatry & Neurology Pain Medicine
PROC: HZ42ZZZ Group Counseling for Substance Abuse Treatment, Cognitive-Behavioral (ICD-10-PCS; principal; 2023-05-30)
DX: F10.20 Alcohol dependence, uncomplicated (principal); F14.20 Cocaine dependence, uncomplicated; F20.9 Schizophrenia, unspecified; Z86.19 Personal history of other infectious and parasitic diseases; Z59.00 Homelessness unspecified
CPT/HCPCS: 87635; 87811

== ENCOUNTER 2023-07-22 14:53 | Inpatient (IN) | payer OTHER ==
[2023-07-22 16:25] VITALS: BMI 19.8
[2023-07-22] MEDS ORDERED: guaiFENesin 600 MG TABLET.ER (FP) PO PRN (17:58)
[2023-07-22] MEDS ORDERED: POLYETHYLENE GLYCOL (HEALTHYLAX) 3350 17 GM PACKET PO PRN (17:58)
[2023-07-22] MEDS ORDERED: MAGNESIUM HYDROX 2400MG/30ML ORAL SUSPENSION 30 ML CUP PO PRN (17:58)
[2023-07-22] MEDS ORDERED: ACETAMINOPHEN 325 MG TABLET (FP) PO PRN (17:58)
[2023-07-22] MEDS ORDERED: ONDANSETRON *ODT* 4 MG TABLET SL PRN (17:58)
[2023-07-22] MEDS ORDERED: IBUPROFEN 400 MG TABLET (FP) PO PRN (17:58)
[2023-07-22] MEDS ORDERED: METHOCARBAMOL 500 MG TABLET PO PRN (17:58)
[2023-07-22] MEDS ORDERED: IBUPROFEN 600 MG TABLET (FP) PO PRN (17:58)
[2023-07-22] MEDS ORDERED: BENZOCAINE/MENTHOL (CHLORASEPTIC ) LOZENGE MM PRN (17:58)
[2023-07-22] MEDS ORDERED: BENZONATATE 200 MG CAPSULE PO PRN (17:58)
[2023-07-22] MEDS ORDERED: BISMUTH SUBSALICYLATE 524 MG/30 ML PO PRN (17:58)
[2023-07-22] MEDS ORDERED: NALOXONE HCL 0.4 MG/ML VIAL IM PRN (17:58)
[2023-07-22] MEDS ORDERED: DICYCLOMINE HCL 10 MG CAPSULE PO PRN (17:58)
[2023-07-22] MEDS ORDERED: LOPERAMIDE HCL 2 MG CAPSULE PO PRN (17:58)
[2023-07-22] MEDS ORDERED: NALOXONE HCL (KLOXXADO) 8 MG SPRAY NS PRN (17:58)
[2023-07-22] MEDS ORDERED: hydrOXYzine PAMOATE 25 MG CAPSULE (FP) PO PRN (17:58)
[2023-07-22] MEDS ORDERED: MAG HYDROX/AL HYDROX/SIMETH 30 ML UNIT-DOSE CUP PO PRN (17:58)
[2023-07-22] MEDS ORDERED: diazePAM 5 MG TABLET PO PRN (17:58)
[2023-07-22] MEDS: MELATONIN 5 MG TABLETS PO SCH (22:58)
[2023-07-22] MEDS: THIAMINE HCL 100 MG TABLET (FP) PO SCH (22:58)
[2023-07-22] MEDS: diazePAM 5 MG TABLET PO SCH (23:00)
[2023-07-23] MEDS: diazePAM 5 MG TABLET PO SCH ×4 (06:00→22:49)
[2023-07-23 09:11] VITALS: RESP 18
[2023-07-23] MEDS: PRENATAL VITAMINS W/ FOLIC ACID TABLET (FP) PO SCH (10:48)
[2023-07-23 20:55] VITALS: TEMP 97.8
[2023-07-23] MEDS: MELATONIN 5 MG TABLETS PO SCH (22:45)
[2023-07-23] MEDS: THIAMINE HCL 100 MG TABLET (FP) PO SCH (22:45)
[2023-07-24 05:53] VITALS: BP 132/79; PULSE 71
[2023-07-24] MEDS: diazePAM 5 MG TABLET PO SCH ×2 (05:54→14:26)
[2023-07-24] MEDS: PRENATAL VITAMINS W/ FOLIC ACID TABLET (FP) PO SCH (09:09)
[2023-07-25] MEDS ORDERED: diazePAM 5 MG TABLET PO SCH (06:00)
[2023-07-26] MEDS ORDERED: diazePAM 5 MG TABLET PO ONE (06:00)
== END 2023-07-24 08:50 | disposition left against medical advice (07) | DRG 770 ==
LOC: YASAS 14:53 → Y6N 17:39
PROVIDERS: ADMIT Allergy & Immunology; ATTEND Surgery
PROC: HZ2ZZZZ Detoxification Services for Substance Abuse Treatment (ICD-10-PCS; principal; 2023-07-22)
DX: F10.230 Alcohol dependence with withdrawal, uncomplicated (principal); F14.20 Cocaine dependence, uncomplicated; F12.10 Cannabis abuse, uncomplicated; F17.213 Nicotine dependence, cigarettes, with withdrawal; B18.2 Chronic viral hepatitis C; R63.4 Abnormal weight loss; Z68.1 Body mass index [BMI] 19.9 or less, adult
CPT/HCPCS: 87635

== ENCOUNTER 2023-09-03 09:56 | Inpatient (IN) | payer OTHER ==
[2023-09-03 11:07] VITALS: RESP 16; BMI 18.6
[2023-09-03] MEDS ORDERED: MAG HYDROX/AL HYDROX/SIMETH 30 ML UNIT-DOSE CUP PO PRN (13:20)
[2023-09-03] MEDS ORDERED: BENZONATATE 200 MG CAPSULE PO PRN (13:20)
[2023-09-03] MEDS ORDERED: LOPERAMIDE HCL 2 MG CAPSULE PO PRN (13:20)
[2023-09-03] MEDS ORDERED: BENZOCAINE/MENTHOL (CHLORASEPTIC ) LOZENGE MM PRN (13:20)
[2023-09-03] MEDS ORDERED: chlordiazePOXIDE HCL 25 MG CAPSULE PO PRN (13:20)
[2023-09-03] MEDS ORDERED: BISMUTH SUBSALICYLATE 524 MG/30 ML PO PRN (13:20)
[2023-09-03] MEDS ORDERED: guaiFENesin 600 MG TABLET.ER (FP) PO PRN (13:20)
[2023-09-03] MEDS ORDERED: hydrOXYzine PAMOATE 25 MG CAPSULE (FP) PO PRN (13:20)
[2023-09-03] MEDS ORDERED: DICYCLOMINE HCL 10 MG CAPSULE PO PRN (13:20)
[2023-09-03] MEDS ORDERED: NALOXONE HCL (KLOXXADO) 8 MG SPRAY NS PRN (13:20)
[2023-09-03] MEDS ORDERED: MAGNESIUM HYDROX 2400MG/30ML ORAL SUSPENSION 30 ML CUP PO PRN (13:20)
[2023-09-03] MEDS ORDERED: NALOXONE HCL 0.4 MG/ML VIAL IM PRN (13:20)
[2023-09-03] MEDS ORDERED: POLYETHYLENE GLYCOL (HEALTHYLAX) 3350 17 GM PACKET PO PRN (13:20)
[2023-09-03] MEDS ORDERED: ONDANSETRON *ODT* 4 MG TABLET SL PRN (13:20)
[2023-09-03] MEDS ORDERED: METHOCARBAMOL 500 MG TABLET PO PRN (13:20)
[2023-09-03] MEDS ORDERED: IBUPROFEN 400 MG TABLET (FP) PO PRN (13:20)
[2023-09-03] MEDS ORDERED: ACETAMINOPHEN 325 MG TABLET (FP) PO PRN (13:20)
[2023-09-03] MEDS ORDERED: IBUPROFEN 600 MG TABLET (FP) PO PRN (13:20)
[2023-09-03] MEDS: chlordiazePOXIDE HCL 25 MG CAPSULE PO SCH ×2 (17:37→23:37)
[2023-09-03] MEDS ORDERED: MELATONIN 5 MG TABLETS PO SCH (22:00)
[2023-09-03] MEDS ORDERED: THIAMINE HCL 100 MG TABLET (FP) PO SCH (22:00)
[2023-09-04] MEDS: chlordiazePOXIDE HCL 25 MG CAPSULE PO SCH ×2 (05:55→10:33)
[2023-09-04] MEDS ORDERED: PRENATAL VITAMINS W/ FOLIC ACID TABLET (FP) PO SCH (10:00)
[2023-09-04 13:18] VITALS: BP 129/79; PULSE 80; TEMP 97.7
[2023-09-05] MEDS ORDERED: chlordiazePOXIDE HCL 25 MG CAPSULE PO SCH (05:00)
[2023-09-06] MEDS ORDERED: chlordiazePOXIDE HCL 10 MG CAPSULE PO PRN
[2023-09-06] MEDS ORDERED: chlordiazePOXIDE HCL 10 MG CAPSULE PO SCH (05:00)
[2023-09-07] MEDS ORDERED: chlordiazePOXIDE HCL 10 MG CAPSULE PO SCH (05:00)
[2023-09-08] MEDS ORDERED: chlordiazePOXIDE HCL 10 MG CAPSULE PO ONE (05:00)
== END 2023-09-04 12:32 | disposition left against medical advice (07) | DRG 770 ==
LOC: SUATTDRO 09:56 → YASAS 09:56 → Y6N 13:14
PROVIDERS: ADMIT Allergy & Immunology; ATTEND Surgery
PROC: HZ2ZZZZ Detoxification Services for Substance Abuse Treatment (ICD-10-PCS; principal; 2023-09-03)
DX: F10.230 Alcohol dependence with withdrawal, uncomplicated (principal); F14.20 Cocaine dependence, uncomplicated; F12.10 Cannabis abuse, uncomplicated; B18.2 Chronic viral hepatitis C; Z59.01 Sheltered homelessness; Z56.0 Unemployment, unspecified
CPT/HCPCS: 87635; 87811

== ENCOUNTER 2023-09-23 16:19 | Inpatient (IN) | payer OTHER ==
[2023-09-23 18:34] VITALS: BMI 21.2
[2023-09-23] MEDS ORDERED: IBUPROFEN 400 MG TABLET (FP) PO PRN (19:34)
[2023-09-23] MEDS ORDERED: ACETAMINOPHEN 325 MG TABLET (FP) PO PRN (19:34)
[2023-09-23] MEDS ORDERED: NALOXONE HCL 0.4 MG/ML VIAL IM PRN (19:34)
[2023-09-23] MEDS ORDERED: NALOXONE HCL (KLOXXADO) 8 MG SPRAY NS PRN (19:34)
[2023-09-23] MEDS ORDERED: MAG HYDROX/AL HYDROX/SIMETH 30 ML UNIT-DOSE CUP PO PRN (19:34)
[2023-09-23] MEDS ORDERED: LOPERAMIDE HCL 2 MG CAPSULE PO PRN (19:34)
[2023-09-23] MEDS ORDERED: IBUPROFEN 600 MG TABLET (FP) PO PRN (19:34)
[2023-09-23] MEDS ORDERED: DICYCLOMINE HCL 10 MG CAPSULE PO PRN (19:34)
[2023-09-23] MEDS ORDERED: BISMUTH SUBSALICYLATE 524 MG/30 ML PO PRN (19:34)
[2023-09-23] MEDS ORDERED: BENZONATATE 200 MG CAPSULE PO PRN (19:34)
[2023-09-23] MEDS ORDERED: MAGNESIUM HYDROX 2400MG/30ML ORAL SUSPENSION 30 ML CUP PO PRN (19:34)
[2023-09-23] MEDS ORDERED: BENZOCAINE/MENTHOL (CHLORASEPTIC ) LOZENGE MM PRN (19:34)
[2023-09-23] MEDS ORDERED: hydrOXYzine PAMOATE 25 MG CAPSULE (FP) PO PRN (19:34)
[2023-09-23] MEDS ORDERED: METHOCARBAMOL 500 MG TABLET PO PRN (19:34)
[2023-09-23] MEDS ORDERED: guaiFENesin 600 MG TABLET.ER (FP) PO PRN (19:34)
[2023-09-23] MEDS ORDERED: ONDANSETRON *ODT* 4 MG TABLET SL PRN (19:34)
[2023-09-23] MEDS ORDERED: POLYETHYLENE GLYCOL (HEALTHYLAX) 3350 17 GM PACKET PO PRN (19:34)
[2023-09-23 21:10] VITALS: BP 105/71; PULSE 96; RESP 16; TEMP 98.4
[2023-09-23] MEDS ORDERED: THIAMINE HCL 100 MG TABLET (FP) PO SCH (22:00)
[2023-09-23] MEDS ORDERED: MELATONIN 5 MG TABLETS PO SCH (22:00)
[2023-09-24] MEDS ORDERED: PRENATAL VITAMINS W/ FOLIC ACID TABLET (FP) PO SCH (10:00)
== END 2023-09-23 22:40 | disposition left against medical advice (07) | DRG 774 ==
LOC: YASAS 16:19 → Y6N 20:08
PROVIDERS: ADMIT Allergy & Immunology; ATTEND Surgery
PROC: HZ2ZZZZ Detoxification Services for Substance Abuse Treatment (ICD-10-PCS; principal; 2023-09-23)
DX: F10.20 Alcohol dependence, uncomplicated (principal); F14.10 Cocaine abuse, uncomplicated; F91.8 Other conduct disorders; Z91.199 Patient's noncompliance with other medical treatment and regimen due to unspecified reason
CPT/HCPCS: 87635